=== PATIENT | female | born 1990 | race American Indian/Alaskan Native ===

== ENCOUNTER 2017-05-01 11:50 | Emergency (ER) | payer MEDICAID ==
--- NOTE | 2017-05-01 12:04 | Emergency Department Report ---
Stated Complaint: STOMACH ANTOINE/BACK PAIN Time Seen by Provider: 05/01/17 12:02 - HPI History of Present Illness: patient is a 26 y/o female who presents due to abdominal pain x 1 week. Patient admits of having nausea and denies any vomiting. Patient denies any dysuria, hematuria or frequency. Patient denies any fever or chills. LMP end of March. - ROS Review of Systems: abdominal pain, nasuea, negative vomiting. - Exam Physical Exam: abdominal tenderness MSE screening note: Focused history and physical exam performed. Due to findings the following was ordered:abdominal pain protocol ED Disposition for MSE Condition: Stable
[2017-05-01 12:40] LABS: Basophils % (Auto) 1.2 % (0.0-1.8); Eosinophils % (Auto) 3.1 % (0.0-4.3); Hemoglobin 13.7 gm/dl (10.1-14.3); Mean Corpuscular HGB Conc 34 % (30-34); Mean Corpuscular Hemoglobin 32 pg (28-32); Mean Corpuscular Volume 93 fl (79-97); Platelet Count 173 K/mm3 (140-440); Red Blood Count 4.31 M/mm3 (3.65-5.03); Red Cell Distribution Width 13.2 % (13.2-15.2); White Blood Count 7.4 K/mm3 (4.5-11.0)
[2017-05-01 12:41] LABS: Bacteria,Urine 1+ /HPF (Negative); Bilirubin,Urine NEG (Negative); Blood,Urine NEG (Negative); Ketones,Urine NEG (Negative); Leukocyte Esterase,Urine MOD (Negative); Nitrite,Urine NEG (Negative); Protein,Urine <15 mg/dL mg/dL (Negative); Urobilinogen,Urine < 2.0 mg/dL (<2.0)
[2017-05-01 12:58] LABS: Alanine Aminotransferase 16 units/L (7-56); Albumin 4.5 g/dL (3.9-5); Albumin/Globulin Ratio 1.4 %; Alkaline Phosphatase 57 units/L (35-129); Anion Gap 16 mmol/L; BUN/Creatinine Ratio 15; Blood Urea Nitrogen 9 mg/dL (7-17); Calcium 9.4 mg/dL (8.4-10.2); Carbon Dioxide 28 mmol/L (22-30); Chloride 100.4 mmol/L (98-107); Glucose 120 mg/dL (65-100); Lipase 17 units/L (13-60); Potassium 3.4 mmol/L (3.6-5.0); Sodium 141 mmol/L (137-145); Total Protein 7.8 g/dL (6.3-8.2)
--- NOTE | 2017-05-01 14:03 | Emergency Department Report ---
ED Abdominal Pain HPI - General Chief Complaint: Abdominal Pain Stated Complaint: STOMACH ANTOINE/BACK PAIN Time Seen by Provider: 05/01/17 14:02 Source: patient Mode of arrival: Ambulatory Limitations: No Limitations - History of Present Illness Initial Comments: This is a 26-year-old female, the patient is previously unknown to this provider. Primary care Dr.: Dr. Will The patient presents to the ER with a complaint of epigastric abdominal pain, and bilateral lower quadrant abdominal pain. The pain has been going on for the past few days. She describes nausea with no vomiting, 3 episodes of loose watery bowel movements, patient reports that she is sexually active with one male partner, uses condoms, denies dyspareunia, denies a history of gonorrhea/ chlamydia. The pain is epigastric in the bilateral lower quadrant, most prominent in left lower quadrant at this time. It increases with palpation and decreases with rest. MD Complaint: abdominal pain -: Gradual Location: LLQ, RLQ, epigastric Migration to: LLQ, suprapubic Quality: cramping, aching Consistency: intermittent Improves With: rest Worsens With: movement Associated Symptoms: nausea - Related Data Previous Rx's Medication Instructions Recorded Last Taken Type Cyclobenzaprine [Flexeril 10mg] 10 mg PO Q8H PRN #21 tablet 12/27/14 Unknown Rx HYDROcodone/APAP 5-325 [[place] 1 each PO Q6HR PRN #20 tablet 12/27/14 Unknown Rx 5/325] Azithromycin [Zithromax TAB] 250 mg PO QDAY #5 tablet 06/21/16 Unknown Rx Acetaminophen [Tylenol Arthritis] 650 mg PO Q6HR PRN #30 tablet.er 05/01/17 Unknown Rx Ibuprofen [Motrin] 600 mg PO Q8H PRN #30 tablet 05/01/17 Unknown Rx Ondansetron [Zofran Odt] 4 mg PO Q8HR PRN #20 tab.rapdis 05/01/17 Unknown Rx Allergies Allergy/AdvReac Type Severity Reaction Status Date / Time TEGADERM AdvReac Rash Uncoded 12/27/14 13:13 ED Review of Systems ROS: Stated complaint: STOMACH ANTOINE/BACK PAIN Other details as noted in HPI Constitutional: denies: fever, malaise Eyes: denies: vision change ENT: denies: epistaxis Respiratory: denies: cough Cardiovascular: denies: chest pain Gastrointestinal: abdominal pain, nausea Genitourinary: denies: urgency, dysuria, frequency, abnormal menses, dyspareunia Musculoskeletal: denies: back pain Skin: denies: lesions Neurological: denies: weakness ED Past Medical Hx - Past Medical History Previous Medical History?: Yes Additional medical history: herpes - Surgical History Past Surgical History?: Yes Additional Surgical History: TONSILLECTOMY. SKIN GRAFTS LEGS AND FEET - Social History Smoking Status: Current Every Day Smoker Substance Use Type: Alcohol - Medications Home Medications: Home Medications Medication Instructions Recorded Confirmed Last Taken Type Cyclobenzaprine [Flexeril 10mg] 10 mg PO Q8H PRN #21 tablet 12/27/14 Unknown Rx HYDROcodone/APAP 5-325 [[place]do 1 each PO Q6HR PRN #20 tablet 12/27/14 Unknown Rx 5/325] Azithromycin [Zithromax TAB] 250 mg PO QDAY #5 tablet 06/21/16 Unknown Rx Acetaminophen [Tylenol Arthritis] 650 mg PO Q6HR PRN #30 tablet.er 05/01/17 Unknown Rx Ibuprofen [Motrin] 600 mg PO Q8H PRN #30 tablet 05/01/17 Unknown Rx Ondansetron [Zofran Odt] 4 mg PO Q8HR PRN #20 tab.rapdis 05/01/17 Unknown Rx ED Physical Exam - General Limitations: No Limitations General appearance: alert, in no apparent distress - Head Head exam: Present: atraumatic, normocephalic - Eye Eye exam: Present: normal appearance, EOMI - ENT ENT exam: Present: normal exam, normal orophraynx, mucous membranes moist, normal external ear exam - Neck Neck exam: Present: normal inspection, full ROM. Absent: tenderness, meningismus - Respiratory Respiratory exam: Present: normal lung sounds bilaterally. Absent: respiratory distress, wheezes, rales, rhonchi, stridor, chest wall tenderness, accessory muscle use, decreased breath sounds, prolonged expiratory - Cardiovascular Cardiovascular Exam: Present: regular rate, normal rhythm, normal heart sounds. Absent: bradycardia, tachycardia, irregular rhythm, systolic murmur, diastolic murmur, rubs, gallop - GI/Abdominal GI/Abdominal exam: Present: soft, tenderness, normal bowel sounds, other ( suprapubic, epigastric, left lower quadrant tender. No rebound, guarding or peritoneal signs). Absent: distended, guarding, rebound, rigid, pulsatile mass - External exam: Present: normal external exam Speculum exam: Present: normal speculum exam. Absent: cervical discharge, vaginal bleeding Bi-manual exam: Present: normal bi-manual exam, other (escorted by nurse Alison Sanchez). Absent: cervical motion tendernes, adnexal tenderness, adnexal mass, uterine enlargement, uterine tenderness - Extremities Exam Extremities exam: Present: normal inspection, full ROM, normal capillary refill. Absent: pedal edema, joint swelling, calf tenderness - Back Exam Back exam: Present: normal inspection, full ROM. Absent: tenderness, CVA tenderness (R), CVA tenderness (L), muscle spasm, paraspinal tenderness, vertebral tenderness - Neurological Exam Neurological exam: Present: alert, oriented X3, normal gait, other (Extraocular movements intact. Tongue midline. No facial droop. Facial sensation intact to light touch in the V1, V2, V3 distribution bilaterally. 5 and 5 strength in 4 extremities.. Sensation is intact to light touch in 4 extremities.). Absent : motor sensory deficit - Psychiatric Psychiatric exam: Present: normal affect, normal mood - Skin Skin exam: Present: warm, dry, intact, normal color. Absent: rash ED Course Vital Signs 05/01/17 05/01/17 05/01/17 11:58 16:45 18:20 Temperature 98.5 F Pulse Rate 82 64 Respiratory 16 18 18 Rate Blood Pressure 124/75 Blood Pressure 133/67 [Left] O2 Sat by Pulse 99 Oximetry ED Medical Decision Making - Lab Data Result diagrams: 05/01/17 12:19 05/01/17 12:19 Vital Signs 05/01/17 05/01/17 05/01/17 11:58 16:45 18:20 Temperature 98.5 F Pulse Rate 82 64 Respiratory 16 18 18 Rate Blood Pressure 124/75 Blood Pressure 133/67 [Left] O2 Sat by Pulse 99 Oximetry Lab Results 05/01/17 05/01/17 05/01/17 Range/Units 12:16 12:19 12:19 WBC 7.4 (4.5-11.0) K/mm3 RBC 4.31 (3.65-5.03) M/mm3 Hgb 13.7 (10.1-14.3) gm/dl Hct 40.0 (30.3-42.9) % MCV 93 (79-97) fl MCH 32 (28-32) pg MCHC 34 (30-34) % RDW 13.2 (13.2-15.2) % Plt Count 173 (140-440) K/mm3 Lymph % (Auto) 35.1 H (13.4-35.0) % [place] % (Auto) 7.1 (0.0-7.3) % Eos % (Auto) 3.1 (0.0-4.3) % Baso % (Auto) 1.2 (0.0-1.8) % Lymph # 2.6 (1.2-5.4) K/mm3 [place] # 0.5 (0.0-0.8) K/mm3 Eos # 0.2 (0.0-0.4) K/mm3 Baso # 0.1 (0.0-0.1) K/mm3 Seg Neutrophils % 53.5 (40.0-70.0) % Seg Neutrophils # 4.0 (1.8-7.7) K/mm3 Sodium 141 (137-145) mmol/L Potassium 3.4 L (3.6-5.0) mmol/L Chloride 100.4 (98-107) mmol/L Carbon Dioxide 28 (22-30) mmol/L Anion Gap 16 mmol/L BUN 9 (7-17) mg/dL Creatinine 0.6 L (0.7-1.2) mg/dL Estimated GFR > 60 ml/min BUN/Creatinine Ratio 15 % Glucose 120 H (65-100) mg/dL Calcium 9.4 (8.4-10.2) mg/dL Total Bilirubin 0.40 (0.1-1.2) mg/dL AST 15 (5-40) units/L ALT 16 (7-56) units/L Alkaline Phosphatase 57 (35-129) units/L Total Protein 7.8 (6.3-8.2) g/dL Albumin 4.5 (3.9-5) g/dL Albumin/Globulin Ratio 1.4 % Lipase 17 (13-60) units/L Urine Color Yellow (Yellow) Urine Turbidity Clear (Clear) Urine pH 7.0 (5.0-7.0) Ur Specific [place] 1.009 (1.003-1.030) Urine Protein <15 mg/dl (Negative) mg/dL Urine Glucose (UA) Neg (Negative) mg/dL Urine Ketones Neg (Negative) mg/dL Urine Blood Neg (Negative) Urine Nitrite Neg (Negative) Urine Bilirubin Neg (Negative) Urine Urobilinogen < 2.0 (<2.0) mg/dL Ur Leukocyte Esterase Mod (Negative) Urine WBC (Auto) 5.0 (0.0-6.0) /HPF Urine RBC (Auto) 1.0 (0.0-6.0) /HPF U Epithel Cells (Auto) 8.0 (0-13.0) /HPF Urine Bacteria (Auto) 1+ (Negative) /HPF Urine HCG, Qual Negative (Negative) - Radiology Data Radiology results: report reviewed, image reviewed CT scan of the abdomen and pelvis with IV contrast demonstrates left-sided ovarian cyst noted, follicle suggested, normal appendix, mild increase fluid and air seen within the nondilated small bowel loops, may be mild wall thickening the small bowel and may be reactive small lymph nodes in the mesentery. May be due to enteritis. - Medical Decision Making Differential diagnosis: Pelvic inflammatory disease, urinary tract infection, ovarian cyst, pancreatitis, intra-abdominal catastrophe Assessment and plan: 26-year-old female with epigastric and lower abdominal pain , for a week, mild nausea, no vomiting, 3 episodes of loose watery diarrhea. No gynecologic tenderness, therefore think florid pelvic inflammatory disease is unlikely, also think significant large ovarian cyst/torsion unlikely, given lack of adnexal tenderness. Patient has not had any vomiting or diarrhea, mild enteritis is a possibility, and this is suggested on a CT scan. Wet prep did demonstrate the presence of trichomoniasis, therefore patient will be covered empirically with azithromycin, metronidazole, and ceftriaxone. She felt improved after symptomatic therapy, and a CT scan with IV contrast demonstrated a 3 cm left-sided ovarian cyst," possible changes of enteritis." Patient will be discharged with pain medication, nausea medication, sti instructions, and she should follow up in outpatient primary care doctor or electrician deck, return precautions are reviewed. Critical care attestation.: If time is entered above; I have spent that time in minutes in the direct care of this critically ill patient, excluding procedure time. ED Disposition Clinical Impression: Abdominal pain Disposition: DC-01 TO HOME OR SELFCARE Is pt being admited?: No Does the pt Need Aspirin: No Condition: Stable Instructions: Pelvic Inflammatory Disease (ED), Ovarian Cyst (ED), Trichomoniasis (ED) Additional Instructions: As we discussed, your laboratory studies appeared to be within normal limits. You are not . CT scan demonstrated left-sided ovarian cyst. Findings of inflammation and small intestine also suggested. Vaginal prep demonstrated trichomoniasis, which is typically considered a sexually transmitted disease. Do not consume alcohol for the next 2 weeks. Given all this, you'll be treated empirically for disease called pelvic inflammatory disease. We typically treat young females with unexplained lower abdominal pain to protect your ability to have children safely in the future. Cultures were sent today, and results will be available next 3-5 days. Please have your primary care doctor call the medical records department to obtain your culture results. Take the antibiotic therapy as directed. Take the nausea medication and pain medication as directed. I recommend outpatient testing for sexually transmitted diseases, including hepatitis, syphilis and HIV. I also recommend that you abstain from sexual activity until you have completed her antibiotic therapy, a physician states that it is safe for you to resume sexual activity, and any partners that you have been sexually active with have been tested/treated/evaluated for sexual transmitted diseases. Please follow-up with physician within 3-5 days. I recommend that you return to the ER right away with worsening pain, migration of pain, intractable nausea/vomiting, inability tolerate liquid feeds. Referrals: PRIMARY CARE, [Primary Care Provider] - 3-5 Days [facility] [Provider Group] - 3-5 Days [facility] [Provider Group] - 3-5 Days [facility] [Provider Group] - 3-5 Days
[2017-05-01] MEDS ORDERED: PEPCID PO ONE (14:59)
[2017-05-01] MEDS ORDERED: CARAFATE PO ONE (14:59)
[2017-05-01] MEDS ORDERED: TORADOL IM ONE (14:59)
[2017-05-01] MEDS ORDERED: ALUM-MAG HYDROX-SIMETH 200-200-20MG/5ML PO ONE (14:59)
[2017-05-01] MEDS ORDERED: NACL 0.9% 1000 ML 1,000 ML IV ONE (15:40)
[2017-05-01] MEDS ORDERED: PEPCID IV ONE (15:40)
[2017-05-01] MEDS ORDERED: TORADOL IV ONE (15:40)
--- NOTE | 2017-05-01 18:14 | Cat Scan Report ---
FINAL REPORT PROCEDURE: CT ABDOMEN PELVIS W CON TECHNIQUE: Computerized axial tomography of the abdomen and pelvis was performed after the IV injection of iodinated nonionic contrast. HISTORY: abd pain COMPARISON: No prior studies are available for comparison. FINDINGS: Minimal hypoventilatory changes are seen in the lung bases. Spleen is mildly enlarged as is the liver. Gallbladder and pancreas display no abnormalities. Adrenal glands and abdominal aorta are normal in size. No renal abnormality is seen. Normal appendix is seen. 3.7 cm left ovarian cyst is seen with a few follicles in the left ovary. There maybe follicles in the right ovary. Mild free pelvic fluid is probably physiologic. Phleboliths are seen in the pelvis. Mild increased fluid and air is seen within nondilated small bowel loops. There may be mild wall thickening in the small bowel and there are reactive small lymph nodes in the mesentery. Findings could be due to enteritis. IMPRESSION: Possible changes of enteritis are seen. 3.7 cm left ovarian cyst is seen, with follicle suspected in both ovaries, also.
[2017-05-01] MEDS ORDERED: ZITHROMAX PO ONE (18:34)
[2017-05-01] MEDS ORDERED: FLAGYL PO STA (18:34)
[2017-05-01] MEDS ORDERED: ROCEPHIN 250 MG in NACL 0.9% 50 ML IV ONE (18:39)
[2017-05-01 19:36] VITALS: BP 137/67
== END 2017-05-01 19:29 | disposition home or self-care (01) ==
LOC: ED 11:50
DX: R10.9 Unspecified abdominal pain (principal); R11.0 Nausea; F17.200 Nicotine dependence, unspecified, uncomplicated; Z91.09 Other allergy status, other than to drugs and biological substances
CPT/HCPCS: 36415; 74177; 80053; 81001; 81025; 83690; 85025; 87210; 87591; 96361; 96365; 96375; 99285; J0696; J1885; J7030; Q9967